=== PATIENT | male | born 1955 | race Caucasian/White ===

== ENCOUNTER 2018-02-18 15:28 | Outpatient (CLI) | payer OTHER ==
--- NOTE | 2018-02-18 17:24 | MRI ---
MRI OF RIGHT SHOULDER PERFORMED WITHOUT CONTRAST ENHANCEMENT: 02/18/18 HISTORY: Right shoulder injury with decreased range of motion. Some moderate AC joint hypertrophic changes present. The supra as infraspinatus tendons appear intact. The subscapularis muscle and tendon are normal in appearance. The biceps tendon is normal in position within the bicipital groove. There is irregular appearance and a tear which appears to begin at the level of the biceps anchor and continues to involve the posterior labrum at least to mid equator level. Inferior glenohumeral ligam ent is intact. IMPRESSION: 1. No evidence of any rotator cuff tear. 2. Posterior superior labral tear. POS: [facility]
== END 2018-02-18 15:29 | disposition home or self-care (01) ==
LOC: SCSMRI 15:28
PROVIDERS: ATTEND Orthopaedic Surgery
DX: S43.401A Unspecified sprain of right shoulder joint, initial encounter (principal)

== ENCOUNTER 2020-06-03 09:50 | Outpatient (CLI) | payer OTHER ==
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
== END 2020-06-03 09:51 | disposition home or self-care (01) ==
LOC: SCSRAD 09:50
PROVIDERS: ATTEND Family Medicine
DX: M79.672 Pain in left foot (principal)

== ENCOUNTER 2021-06-13 16:10 | Emergency (ER) | payer MEDICARE | END 2021-06-13 19:25 | disposition home or self-care (01) | LOC: ERS 16:10 | DX: M79.605 Pain in left leg (principal); J45.909 Unspecified asthma, uncomplicated ==

== ENCOUNTER 2025-09-13 11:08 | Outpatient (CLI) | payer OTHER | END 2025-09-13 11:09 | disposition home or self-care (01) | LOC: SCSRAD 11:08 | PROVIDERS: ATTEND Family Medicine | DX: J98.01 Acute bronchospasm (principal); R05.9 Cough, unspecified | CPT/HCPCS: 71046 ==